=== PATIENT | male | born 1955 | race Caucasian/White ===

== ENCOUNTER → 2017-11-09 08:46 | Outpatient (CLI) | payer SELFPAY ==
[2017-11-09 10:07] LABS: Add Manual Diff / Slide Review NO; Basophils Percent Auto 0.8 % (0-2); Eosinophils Percent Auto 4.4 % (2-4); Hematocrit 39.1 % (41-53); Hemoglobin 13.3 g/dL (13.5-17.5); Lymphocytes Percent Auto 18.3 % (25-40); Mean Corpuscular Volume 94.3 fL (80-100); Monocytes Percent Auto 8.3 % (3-14); Neutrophils Absolute Auto 3000 /uL (3000-5900); Neutrophils Percent Auto 68.2 % (50-75); Platelet Count 189 X10^3/uL (150-400); Red Blood Cell Count 4.15 X10^6/uL (4.5-5.9); Red Cell Distribution Width 13.1 % (11.6-14.8); White Blood Cell Count 4.4 X10^3/uL (4.5-11.0)
[2017-11-09 10:34] LABS: HEMOLYSIS < 15 (0-50); Iron 82 ug/dL (49-181)
[2017-11-09 10:37] LABS: Alanine Aminotransferase 20 IU/L (21-72); Albumin Globulin Ratio 1.4 (1.0-2.8); Alkaline Phosphatase 61 U/L (38-126); Aspartate Aminotransferase 32 IU/L (17-59); BUN Creatinine Ratio 22.2 (6-22); Bilirubin Total 0.4 mg/dL (0.2-1.3); Calcium 9.3 mg/dL (8.4-10.2); Cholesterol 163 mg/dL (140-199); Estimated Glomerular Filt Rate > 60.0 mL/min (>60); Globulin 2.8 g/dL (1.7-4.1); Glucose 93 mg/dL (80-110); HDL Cholesterol 61 mg/dL (40-60); HEMOLYSIS 19 (0-50); LDL Cholesterol Calculated 75 mg/dL (<100); Sodium 144 mmol/L (137-145); Total Protein 6.8 g/dL (6.3-8.2); Triglycerides 136 mg/dL (35-150)
[2017-11-09 10:45] LABS: Percent Iron Saturation 25 % (20-50); Total Iron Binding Capacity 323 ug/mL (261-462); Transferrin 260 mg/dL (206-381)
[2017-11-09 11:27] LABS: Hep C Virus Ab w/Reflex Quant NEGATIVE s/c (NEGATIVE)
[2017-11-09 11:40] LABS: Vitamin B12 456 pg/mL (239-931)
[2017-11-09 11:51] LABS: Folate > 20.0 ng/mL (2.76-20.0)
== END ==
PROVIDERS: Visit Provider Nurse Practitioner Family
DX: I10 Essential (primary) hypertension (principal); K21.9 Gastro-esophageal reflux disease without esophagitis; J30.2 Other seasonal allergic rhinitis; D50.9 Iron deficiency anemia, unspecified; D51.9 Vitamin B12 deficiency anemia, unspecified; Z00.00 Encounter for general adult medical examination without abnormal findings
CPT/HCPCS: 36415; 80053; 80061; 82607; 82746; 83540; 83550; 85025; 86803

== ENCOUNTER → 2017-11-17 16:56 | Outpatient (REF) | payer SELFPAY ==
[2017-11-17 17:51] LABS: Prostate Specific Antigen Scrn 1.83 ng/mL (0.1-4.0)
== END ==
LOC: LAB 16:56
PROVIDERS: Visit Provider Nurse Practitioner Family
DX: Z12.5 Encounter for screening for malignant neoplasm of prostate (principal)
CPT/HCPCS: G0103

== ENCOUNTER → 2020-06-26 14:15 | Outpatient (CLI) | payer OTHER, SELFPAY ==
[2020-06-26] MEDS: COVID-19 VACC(MODERNA-1)/PF 100 MCG/0.5 ML VIAL IM (14:23)
== END ==
PROVIDERS: Visit Provider Internal Medicine
DX: Z23 Encounter for immunization (principal)
CPT/HCPCS: 0011A; 91301

== ENCOUNTER → 2020-07-22 14:56 | Outpatient (CLI) | payer OTHER, SELFPAY ==
[2020-07-22] MEDS: COVID-19 VACC #2, MRNA(MOD) 100 MCG/0.5 ML VIAL IM (15:08)
== END ==
PROVIDERS: Visit Provider Internal Medicine
DX: Z23 Encounter for immunization (principal)
CPT/HCPCS: 0012A; 91301